=== PATIENT | male | born 1985 | race African-American/Black ===

== ENCOUNTER 2019-01-04 10:37 | Emergency (ER) | payer OTHER ==
--- NOTE | 2019-01-04 11:11 | EDM.PDOC ---
ED HPI GENERAL MEDICAL PROBLEM - General Chief Complaint: Lower Extremity Injury/Pain Stated Complaint: LT LEG LT SHOULDER INJURY Time Seen by Provider: 01/04/19 11:06 Source of Information: Reports: Patient History Limitations: Reports: No Limitations - History of Present Illness INITIAL COMMENTS - FREE TEXT/NARRATIVE: 33-year-old male presents for evaluation and treatment of injuries sustained about work. Patient reports that she was hit with a bucket on a dry kiln loader. He states that he flew several feet. Pain primarily to the proximal lateral humerus and the posterior mid to distal lower leg. He has an abrasion to both of these areas. He states he might have hit his head. He does not have any headaches, syncope, nausea, vomiting, chest pain or abdominal pain. Patient is unsure of last tetanus. Onset: Today Location: Reports: Upper Extremity, Left, Lower Extremity, Left Left Shoulder Pain Score (Numeric/FACES): 4 Left Lower Leg Pain Score (Numeric/FACES): 6 - Related Data Allergies Allergy/AdvReac Type Severity Reaction Status Date / Time No Known Allergies Allergy Verified 01/04/19 10:54 Home Meds: Home Meds . [No Known Home Meds] 01/04/19 [History] Past Medical History - Past Health History Medical/Surgical History: Denies Medical/Surgical History Social & Family History - Tobacco Use Smoking Status *Q: Never Smoker - Recreational Drug Use Recreational Drug Use: No Review of Systems - Review of Systems Review Of Systems: See Below Cardiovascular: Denies: Chest Pain GI/Abdominal: Denies: Abdominal Pain, Nausea, Vomiting Skin: Reports: Wound (abrasion to the left arm and left lower leg) Neurological: Denies: Headache, Difficulty Walking ED EXAM, GENERAL - Physical Exam Exam: See Below Exam Limited By: No Limitations General Appearance: Alert, WD/WN, No Apparent Distress Eye Exam: Bilateral Eye: EOMI, Normal Inspection, PERRL Ears: Normal External Exam Nose: Normal Inspection Throat/Mouth: Normal Inspection, Normal Lips, Normal Voice, No Airway Compromise Neck: Full Range of Motion Respiratory/Chest: No Respiratory Distress, Lungs Clear, Normal Breath Sounds Cardiovascular: Normal Peripheral Pulses, Regular Rate, Rhythm, No Murmur Extremities: Normal Inspection (no obvous deformities) Neurological: Alert, Oriented, Normal Cognition Psychiatric: Normal Affect, Normal Mood Skin Exam: Warm, Dry, Normal Color, Wound/Incision (aproximatlety 4x1cm abrasion to the left lower mid-distal leg, superficial anrasion to the left mid humerus approximately quater sized) Course - Vital Signs Last Recorded V/S: Last Vital Signs Temp 97.8 F 01/04/19 10:44 Pulse 72 01/04/19 10:44 Resp 16 01/04/19 10:44 BP 150/101 H 01/04/19 10:44 Pulse Ox 100 01/04/19 10:44 - Orders/Labs/Meds Orders: Active Orders 24 hr Category Date Time Status Vaccines to be Administered [RC] PER UNIT ROUTINE Care 01/04/19 11:13 Ordered Humerus Lt [CR] Stat Exams 01/04/19 11:13 Ordered Tibia Fibula Lt [CR] Stat Exams 01/04/19 11:13 Ordered Meds: Medications Discontinued Medications Generic Name Dose Route Start Last Admin Trade Name Freq PRN Reason Stop Dose Admin Diphtheria/Tetanus/Acell Pertussis 0.5 ml 01/04/19 11:13 01/04/19 11:20 Adacel IM 01/04/19 11:14 0.5 ml .ONCE ONE Administration - Radiology Interpretation Free Text/Narrative:: X-ray of the left humerus and left tibia and fibula show no acute fractures. - Re-Assessments/Exams Free Text/Narrative Re-Assessment/Exam: 01/04/19 12:01 Tetanus updated. Reviewed x-ray results with the patient. Recommend symptomatically care. Discharge instructions as documented. Departure - Departure Time of Disposition: 12:02 Disposition: Home, Self-Care 01 Condition: Good Clinical Impression: Abrasion - Discharge Information *PRESCRIPTION DRUG MONITORING PROGRAM REVIEWED*: No *COPY OF PRESCRIPTION DRUG MONITORING REPORT IN PATIENT ISAAC: No Referrals: PCP,None [Primary Care Provider] - Sabino Hansen MD [Physician] - Forms: ED Department Discharge Additional Instructions: Wash the wounds with gentle soap and water twice a day. May apply a topical antibacterial ointment such as Neosporin or bacitracin to the wounds. Ice and elevate the lower leg help with the swelling. [id number] Tylenol or Motrin as needed for pain relief. Monitor the wound for signs of infection such as increased swelling, pus or redness. Present to the clinic or the ER should these develop. Follow-up with occupational health if not getting much better in 2 weeks. Samantha Hansen at occupational [facility] [place] as this was a work-related injury. Call [phone] schedule with him. Please return to the ER if your symptoms change or worsen. - My Orders Last 24 Hours: My Active Orders 01/04/19 11:13 Vaccines to be Administered [RC] PER UNIT ROUTINE Humerus Lt [CR] Stat Tibia Fibula Lt [CR] Stat - Assessment/Plan Last 24 Hours: My Active Orders 01/04/19 11:13 Vaccines to be Administered [RC] PER UNIT ROUTINE Humerus Lt [CR] Stat Tibia Fibula Lt [CR] Stat
[2019-01-04] MEDS ORDERED: Diphtheria,Pertussis(Acell),Tetanus Vaccine 0.5 ML Syringe IM ONE (11:13)
--- NOTE | 2019-01-07 09:29 | CR ---
Left tibia and fibula: Two views of the left tibia and fibula were obtained. Comparison: No previous study. No fracture or other bony abnormality is seen. Impression: 1. No abnormality is identified on two-view left tibia and fibula exam. Diagnostic code #1
--- NOTE | 2019-01-07 09:29 | CR ---
Left humerus: Two views of the left humerus were obtained. No fracture or other abnormality is seen. Impression: 1. No abnormality is identified on two-view left humerus exam. Diagnostic code #1
== END 2019-01-04 12:19 | disposition home or self-care (01) ==
LOC: JD.ED 10:37
DX: S80.812A Abrasion, left lower leg, initial encounter (principal); S40.812A Abrasion of left upper arm, initial encounter; Z23 Encounter for immunization; W22.8XXA Striking against or struck by other objects, initial encounter
CPT/HCPCS: 73060-26-LT; 73060-LT; 73590-26-LT; 73590-LT; 90471; 90700; 99283-25